=== PATIENT | female | born 1950 | race African-American/Black ===

== ENCOUNTER 2018-07-28 13:48 | Emergency (ER) | payer OTHER ==
[~2018-07-28] VITALS: Ht 172.7 cm; Wt 108.9 kg
--- OUTSIDE RECORDS SUMMARY | 2018-07-28 13:51 | XMS REPORT | Continuity of Care Document ---
Author Author [facility] Interface Address Unknown Phone Unavailable Problems Problem Status Onset Date Classification Date Reported Comments Source E04.1 NONTOXIC SINGLE THYROID NODULE Active 11/23/2016 [facility] CALFICATION Active 06/18/2016 [facility] CALIFICATION Active 06/10/2016 [facility] M85.80 OTHER SPECIFIED DISORDERS OF BONE Active 05/18/2016 [facility] Incisional hernia<sup>4</sup> Active 10/28/2012 Problem 12/03/2016 Data migrated from [employer] on 01/12/15. [facility] ICD 553.21 / CPT 45663 91638 Active 10/28/2012 [facility] ICD 553.21 / CPT 48612 41238 Active 10/28/2012 [facility] UNK Active 10/28/2012 [facility] Abdominal wall pain<sup>1</sup> Active 10/21/2012 Problem 12/03/2016 Data migrated from [employer] on 01/12/15. [facility] ABDOMINAL PAIN Active 10/21/2012 [facility] Anemia<sup>2</sup> Active Problem 12/03/2016 Data migrated from [employer] on 01/12/15. [facility] Cough Active Problem 12/03/2016 [facility] Diverticulitis Active Problem 12/03/2016 [facility] Hernia<sup>3</sup> Active Problem 12/03/2016 incisional [facility] Hypercholesteremia Resolved Problem 12/03/2016 [facility] Hypertension Active Problem 12/03/2016 [facility] OTH DISRD OF BONE DENSITY AND STRUCTURE, Active [facility] ENCNTR SCREEN MAMMOGRAM FOR MALIGNANT NE Active [facility] MAMMOGRAPHIC CALCIFCN FOUND ON DIAGNOSTI Active [facility] NONTOXIC SINGLE THYROID NODULE Active [facility] Medications Medication Details Route Status Patient Instructions Ordering Provider Order Date Source Allergies, Adverse Reactions, Alerts Substance Category Reaction Severity Reaction type Status Date Reported Comments Source Immunizations Immunization Date Given Site Status Last Updated Comments Source Results Order Name Results Value Reference Range Date Interpretation Comments Source Thyroid US Thyroid US Clinical Indication: E04.1 Nontoxic single thyroid nodule; Comparison: None TECHNIQUE: Sonographic evaluation of the thyroid gland is performed FINDINGS: The right thyroid gland measures 5.6 x 2.8 x 3.4 cm. The left thyroid gland measures 4.5 x 1.7 x 1.7 cm. The thyroid isthmus is unremarkable Multiple thyroid nodules, as described below: 3.5 cm right upper/mid nodule which is heterogeneous but solid appearing with internal vascularity 2.2 cm right lower/mid thyroid nodule which is primarily cystic with thin internal smaller nodule. No definite vascularity. 1.6 cm left upper lobe nodule which is heterogeneous, without microcalcifications or definite internal vascularity 1.4 cm left midpole nodule, mixed solid and cystic without microcalcifications or internal vascularity 0.5 cm left lower lobe nodule, hypoechoic without internal vascularity. There is no adjacent jugular chain lymphadenopathy. IMPRESSION: 1. Multiple bilateral thyroid nodules. Recommend FNA of the solid-appearing 3.5 cm right upper pole nodule and of the heterogeneous primarily solid 1.6 cm left upper pole nodule, if not already performed. SL: [id number] 11/30/2016 - - Read by: Allan Simpson MD Dictated Date/time: 11/30/16 11:36 Electronically Signed by: Allan Simpson MD 11/30/16 11:40 FINAL REPORT [facility] Digital Mammo DX Uni MA Digital Mammo DX Uni MA - DIGITAL MAMMO DX UNI MA/L UNILATERAL LEFT DIGITAL DIAGNOSTIC MAMMOGRAM WITH CAD: 06/18/2016 CLINICAL: Mammographic Abnormality. Current study was evaluated with a Computer Aided Detection (CAD) system. Comparison is made to exams dated: 06/02/2016 mammogram, 10/24/2012 mammogram, 12/05/2009 ultrasound, 12/05/2009 mammogram and 11/19/2009 mammogram - [facility]. The tissue of the left breast is heterogeneously dense, which could obscure detection of small masses. There are benign appearing calcifications in the left breast. There also are benign appearing scattered densities in the left breast. There are multiple clustered grouped calcifications in the left breast anterior to middle depth. These correlate with the prior exam. No other significant masses or calcifications are seen in the breast. IMPRESSION: SUSPICIOUS OF MALIGNANCY The multiple clustered grouped calcifications in the left breast are at an intermediate suspicion for malignancy. A stereotactic biopsy is recommended for the most suspicious cluster at 9 o'clock. A phone call was made to the physician's office and the results were reviewed with the patient. SUMMARY: The patient scheduled her procedure prior to leaving the [facility]. Critical findings were called to Marzena in the physician's office at 1150 hours on the day of the exam. An order for this procedure will need to be provided by the referring physician. As the patient is on anti-coagulation medication, this should be discontinued prior to the biopsy with the referring physician's approval. Robyn yan/:06/18/2016 15:03:06 Stuffed Casing Tier: Nickie Mckeon, [facility] This exam was dictated and interpreted by [id number] for [facility]. letter sent: Biopsy Mammogram BI-RADS: 4b Suspicious abnormality - intermediate suspicion of malignancy 06/18/2016 - - Read by: Robyn Rodríguez MD Dictated Date/time: 06/18/16 15:03 Electronically Signed by: Robyn Rodríguez MD 06/18/16 15:03 FINAL REPORT [facility] Digital Mammo Screening Allison MA Digital Mammo Screening Allison MA - DIGITAL MAMMO SCREENING ALLISON MA BILATERAL DIGITAL SCREENING MAMMOGRAM WITH CAD: 06/02/2016 CLINICAL: Routine. Current study was evaluated with a Computer Aided Detection (CAD) system. Comparison is made to exams dated: 10/24/2012 mammogram, 12/05/2009 mammogram, 11/19/2009 mammogram - [facility] and 05/24/2002 mammogram. The tissue of both breasts is heterogeneously dense, which could obscure detection of small masses. There are benign appearing calcifications in both breasts. There also are benign appearing scattered densities in both breasts. There are clustered calcifications in the left breast at 8 o'clock middle depth. No other significant masses, calcifications, or other findings are seen in either breast. IMPRESSION: INCOMPLETE: NEEDS ADDITIONAL IMAGING EVALUATION The clustered calcifications in the left breast are indeterminate. Left diagnostic mammogram with possible ultrasound is recommended (magnification views and lateral view). Robyn yan/penrad:06/02/2016 15:31:00 Stuffed Casing Tier: Kenia Hernandez, [facility] This exam was dictated and interpreted by [id number] for [facility]. letter sent: Additional Imaging Mammogram BI-RADS: 0 Indeterminate 06/02/2016 - - Read by: Robyn Rodríguez MD Dictated Date/time: 06/02/16 15:31 Electronically Signed by: Robyn Rodríguez MD 06/02/16 15:31 FINAL REPORT [facility] Bone Density Scan Bone Density Scan Patient Name: DIONNA WILDE : 1950; Age: 65 years y/o Female MR: [id number] Study: Bone Density Scan 06/02/2016 1:01 PM CDT Ordering Physician: Jane Sethi MD Clinical Indication: M85.80 Other specified disorders of bone density and structure, unspecified site. Comparison: None FINDINGS: The axial lumbar bone mineral density is 106% of the expected age matched bone mass with a T-score 0.7. Axial lumbar average BMD is 1.223 g/cm2. The left femoral neck bone mineral density is 96% of the expected age matched bone mass with a T-score of -0.3. Left femoral neck BMD is 0.913 g/cm2. The total femoral BMD is 1.017 g/cm2. IMPRESSION: 1. Normal bone mineral density of the lumbar spine. 2. Normal bone mineral density of the left femoral neck. The World Health Organization has established that OSTEOPOROSIS occurs at -2.5 or more standard deviations (SD) below peak bone mass. OSTEOPENIA (low bone mass) occurs at -1.0 standard deviations to -2.5 standard deviations below peak bone mass. SL: [id number] 06/02/2016 - - Read by: Adis Hampton MD Dictated Date/time: 06/02/16 13:56 Electronically Signed by: Adis Hampton MD 06/02/16 13:57 FINAL REPORT [facility] Vital Signs Vital Sign Value Date Comments Source Encounters Location Location Details Encounter Type Encounter Number Reason For Visit Attending Provider ADM Date DC Date Status Source [facility] Outpatient [id number] ABDOMINAL PAIN JANE SETHI 10/24/2012 Active [facility] [id number] ICD 553.21 / CPT 41450 75574 . ROMANIAN MAYE 11/01/2012 11/02/2012 Active [facility] Outpatient [id number] Jane Sethi 06/02/2016 06/03/2016 [facility] Outpatient [id number] Jane Sethi 06/18/2016 06/19/2016 [facility] Outpatient [id number] Jane Sethi 11/30/2016 12/01/2016 [facility] Procedures Procedure Code Date Perfomer Comments Source Colon operation<sup>1</sup> 64802596 colostomy [facility] Hernia repair [id number] [facility] Operation<sup>2</sup> 264093305 colostomy closure and hysterectomy [facility] Operation<sup>3</sup> [id number] percutaneous drain [facility]
--- OUTSIDE RECORDS SUMMARY | 2018-07-28 13:52 | XMS REPORT | Summary of Care ---
Author Author [facility] Organization [facility] Address Unknown Phone Unavailable Encounter HQ Isai(MIGDALIA) [id number] Date(s): 06/18/16 - 06/18/16 [facility] [address] [place] [address]- [phone] Discharge Disposition: Home or Self Care Attending Physician: Jane Connelly MD Referring Physician: Jane Connelly MD Vital Signs No data available for this section Problem List Condition Effective Dates Status Health Status Informant Abdominal wall pain1 10/21/12 Active Anemia2 Active Cough(Confirmed) Active Diverticulitis(Confi Active rmed) Hernia(Confirmed)3 Active Hypercholesteremia(C Resolved onfirmed) Hypertension(Confirm Active ed) Incisional hernia4 10/28/12 Active 1Data migrated from [employer] on 01/12/15. 2Data migrated from [employer] on 01/12/15. 3incisional 4Data migrated from [employer] on 01/12/15. Allergies, Adverse Reactions, Alerts Substance Reaction Severity Status NKDA Active Medications No data available for this section Results No data available for this section Immunizations No data available for this section Procedures Procedure Date Related Diagnosis Body Site Colon operation1 Hernia repair Hernia repair Operation2 Operation3 1colostomy 2colostomy closure and hysterectomy 3percutaneous drain Social History No data available for this section Assessment and Plan No data available for this section
--- OUTSIDE RECORDS SUMMARY | 2018-07-28 13:52 | XMS REPORT | Summary of Care ---
Author Author [facility] Organization [facility] Address Unknown Phone Unavailable Encounter DELFINA Alex(MIGDALIA) [id number] Date(s): 11/30/16 - 11/30/16 [facility] [address] [place] [address]- Discharge Disposition: Home or Self Care Attending [...]
--- OUTSIDE RECORDS SUMMARY | 2018-07-28 13:52 | XMS REPORT | Summary of Care ---
Author Author [facility] Organization [facility] Address Unknown Phone Unavailable Encounter DELFINA Alex(MIGDALIA) [id number] Date(s): 06/02/16 - 06/02/16 [facility] [address] [place] [address]- [phone] Discharge Disposition: Home or Self Care Attending [...]
--- NOTE | 2018-07-28 16:49 | Diagnostic Imaging Report ---
EXAMINATION: Right shoulder internal and external rotation. CLINICAL HISTORY: Status post fall today, shoulder pain. COMPARISON: None. . Discussion: The osseous structures are intact without evidence of acute, displaced fracture or dislocation. No osteolytic or osteoblastic lesions. There is no evidence of a.c. separation. Mild degenerative changes in the right glenohumeral and acromioclavicular joints. Visualized portions of the right lung are clear. Soft tissues are unremarkable. IMPRESSION: 1. No acute abnormalities. Signed by: Dr. Sean Mott M.D. on 07/28/2018 4:46 PM
[2018-07-28 17:54] VITALS: BP 155/73
== END 2018-07-28 17:30 | disposition home or self-care (01) ==
LOC: ER 13:48
DX: S40.011A Contusion of right shoulder, initial encounter (principal); S46.011A Strain of muscle(s) and tendon(s) of the rotator cuff of right shoulder, initial encounter; W01.0XXA Fall on same level from slipping, tripping and stumbling without subsequent striking against object, initial encounter; Y99.0 Civilian activity done for income or pay; I10 Essential (primary) hypertension; E78.5 Hyperlipidemia, unspecified; E66.9 Obesity, unspecified; Z98.0 Intestinal bypass and anastomosis status
CPT/HCPCS: 99283